=== PATIENT | male | born 1980 | race Caucasian/White ===

== ENCOUNTER 2021-12-23 10:07 | Emergency (ER) | payer SELFPAY ==
[~2021-12-23] VITALS: Ht 175.3 cm; Wt 79.5 kg
[2021-12-23 10:38] VITALS: TEMP 97.7
[2021-12-23 11:47] VITALS: BP 131/87; PULSE 88
== END 2021-12-23 11:53 | disposition home or self-care (01) ==
LOC: COL.ER 10:07
DX: S61.216A Laceration without foreign body of right little finger without damage to nail, initial encounter (principal); F17.210 Nicotine dependence, cigarettes, uncomplicated; Z23 Encounter for immunization; Z28.310 Unvaccinated for COVID-19; W25.XXXA Contact with sharp glass, initial encounter; Y93.G1 Activity, food preparation and clean up

== ENCOUNTER 2022-05-04 07:33 | Emergency (ER) | payer SELFPAY ==
[~2022-05-04] VITALS: Ht 175.3 cm; Wt 77.3 kg
[2022-05-04 07:42] VITALS: BP 142/96; PULSE 91; TEMP 98.4
[2022-05-04] MEDS ORDERED: PREDNISONE10 MG PO (07:50)
[2022-05-04] MEDS ORDERED: EUCERIN1 CRE TOP (07:51)
== END 2022-05-04 07:58 | disposition home or self-care (01) ==
LOC: COL.ER 07:33
DX: R21 Rash and other nonspecific skin eruption (principal); Z28.310 Unvaccinated for COVID-19